=== PATIENT | female | born 2000 | race Two or more races ===

== ENCOUNTER 2021-05-10 22:45 | Emergency (ER) | payer SELFPAY ==
[~2021-05-10] VITALS: Ht 149.9 cm; Wt 44.0 kg
[2021-05-10] MEDS ORDERED: DIPHENHYDRAMINE 25MG CAPSULE PO ONE (23:45)
[2021-05-10] MEDS ORDERED: PREDNISONE 20MG TABLET PO SCH (23:45)
[2021-05-11] MEDS ORDERED: DIPH25CA83 MT (00:25)
[2021-05-11] MEDS ORDERED: P20 PO (00:25)
[2021-05-11 01:13] VITALS: BP 120/82
== END 2021-05-11 01:20 | disposition home or self-care (01) ==
LOC: ER 22:45
DX: T78.49XA Other allergy, initial encounter (principal); X58.XXXA Exposure to other specified factors, initial encounter; R22.0 Localized swelling, mass and lump, head; R21 Rash and other nonspecific skin eruption
CPT/HCPCS: 81025; 99283; J7512; Q0163